=== PATIENT | male | born 1980 | race Caucasian/White ===

== ENCOUNTER 2018-07-28 23:13 | Inpatient (IN) | payer MEDICAID ==
[2018-07-28 23:14] VITALS: BMI 32.5
[2018-07-28] MEDS ORDERED: guaiFENesin DM 100 mg-10 mg/5 ml UD PO STA (23:28)
--- NOTE | 2018-07-28 23:31 | C.PDOC ---
History Of Present Illness Patient transferred to our ED from [facility] for psychiatric admission (for depression), was medically cleared by sending hospital and accepted for admission by Dr. Machado. Patient is c/o sore throat and nonproductive cough, as well as diffuse itching and nausea. He denies any other physical complaints at this time. Time Seen by Provider: 07/28/18 23:16 Chief Complaint (Nursing): Psychiatric Evaluation History Per: Patient History/Exam Limitations: no limitations Modifying Factor(s): Narcotics (heroin abuse ) Severity: Moderate Past Medical History Reviewed: Historical Data, Nursing Documentation, Vital Signs Vital Signs: Last Vital Signs Temp 98.6 F 07/28/18 23:24 Pulse 94 H 07/28/18 23:24 Resp BP 114/78 07/28/18 23:24 Pulse Ox 97 07/28/18 23:24 - Medical History PMH: Anxiety, Asthma, Back Problems (chronic back pain), Bipolar Disorder, Depression, Schizophrenia Surgical History: Appendectomy - [facility] DETOXIFICATION SERVICES FOR SUBSTANCE ABUSE TREATMENT (10/20/15) INJECT/INFUSE NEC (09/24/14) Family History: States: No Known Family Hx - Social History Hx Tobacco Use: No Hx Alcohol Use: Yes Hx Substance Use: Yes - Immunization History Hx Tetanus Toxoid Vaccination: No Hx Influenza Vaccination: No Hx Pneumococcal Vaccination: No Review Of Systems Constitutional: Negative for: Fever, Chills Cardiovascular: Negative for: Chest Pain, Palpitations Respiratory: Positive for: Cough. Negative for: Shortness of Breath, SOB with Excertion, Wheezing Gastrointestinal: Positive for: Nausea. Negative for: Vomiting, Abdominal Pain, Diarrhea Skin: Negative for: Rash Physical Exam - Physical Exam Appears: Well, Non-toxic, No Acute Distress Skin: Other (scattered scratches on neck) Head: Atraumatic, Normacephalic Eye(s): bilateral: Normal Inspection, PERRL, EOMI Oral Mucosa: Moist Cardiovascular: Rhythm Regular Respiratory: Normal Breath Sounds, No Rales, No Rhonchi, No Wheezing Gastrointestinal/Abdominal: Normal Exam, Bowel Sounds, Soft, No Tenderness Neurological/Psych: Oriented x3 ED Course And Treatment O2 Sat by Pulse Oximetry: 97 (RA) Pulse Ox Interpretation: Normal Progress Note: Patient given PO Robitussin, Zofran and Benadryl. Admitted to psychiatric floor for depression. Disposition - Disposition Disposition: HOSPITALIZED Disposition Time: 23:32 Condition: STABLE - Clinical Impression Clinical Impression: Major depression Decision To Admit - Pt Status Changed To: Hospital Disposition Of: Inpatient - Admit Certification Admit to Inpatient:: After my assessment, the patient will require hospitalization for at least two midnights. This is because of the severity of symptoms shown, intensity of services needed, and/or the medical risk in this patient being treated as an outpatient. - InPatient: Physician Admission Certification: I certify that this patient requires 2 or more midnights of care for the following reason:: see notes - . Bed Request Type: Psychiatry Admitting Physician: Ethel Machado Patient Diagnosis: Depression
[2018-07-28] MEDS ORDERED: guaiFENesin 100 mg/5 ml Syrup UD ONE (23:47)
[2018-07-29] MEDS: Albuterol HFA 90 mcg/actuation (8 g) INH PRN ×2 (01:29→12:36)
--- NOTE | 2018-07-29 02:02 | PCM.BM ---
<Cristobal Lucas - Last Filed: 07/29/18 02:01> Treatment Plan Problems - Problems identified on initial assessmt Depression Date Initiated: 07/29/18 Time Initiated: 00:15 Assessment reference: NA Status: Active Opiates Abuse Date Initiated: 07/29/18 Time Initiated: 00:15 Assessment reference: NA Status: Active Treatment assets and liabiliti Patient Assests: physically healthy, good support system Patient Liabilities: substance abuse (Opiates, Cocaine), medical problems (Coughing ) - Milieu Protocol Maintain good personal hygiene: daily Encourage regular showers, daily Remind patient to perform daily oral care, every shift Assist patient to perform ADL's Conduct patient checks and document Observation sheet: Q15 minutes Maintain personal safety: every shift Educate patient to report safety concerns to staff, every shift Monitor environment for contraband/sharps Medication safety: Monitor for expected outcome, potential side effects: every shift, Assess barriers to learning: every shift, Assess readiness for medication education: every shift <Mario Brown - Last Filed: 08/01/18 11:23> - Diagnosis (1) Bipolar 1 disorder Status: Acute Interventions: 08/01/18 11:23 * Assess/adjust medications daily and /or as needed * See patient on an individual basis 7x/week to assess level of manic behaviors and stability * Discuss risks, benefits, side effects and alternatives of medications * (2) Substance abuse Status: Acute Interventions: 08/01/18 11:24 * Assess 7x/week regarding severity of withdrawal * Educate regarding risks, benefits, side effects and alternatives of medications * Use Motivational Interviewing for abstinence * Use CBT for relapse prevention * Medication management for withdrawal symptoms * Encourage medication assisted treatment * <Syeda Sanon - Last Filed: 08/01/18 17:24> Family Contact Family involvement: Patient does not wish Family/SO involvement Family contact: Patient declines to allow family contact at present - Goals for Treatment Patient goals for treatment: "[facility]." Discharge/Continuing Care - Education Needs Education Needs: Patient Medication, Patient Diagnosis/Disease Process, Patient Coping Skills, Patient Placement options, Patient Community resources - Discharge Discharge Criteria: Free of Suicidal thoughts, Free of paranoid thoughts, Normal sleep pattern, Ability to care for self, No longer exhibiting s/s of withdrawal, Reduction of target symptoms Discharge to:: Other - Treatment Team Participation Discussed with Family/SO: No Was Patient/Family/SO present at Treatment Team Meeting: Yes
[2018-07-29] MEDS: guaiFENesin 100 mg/5 ml Syrup UD PO PRN (12:36)
[2018-07-29] MEDS: Amoxicillin-Clav 500-125 mg Tab PO SCH ×2 (14:05→21:13)
[2018-07-30] MEDS: Amoxicillin-Clav 500-125 mg Tab PO SCH ×3 (06:57→21:19)
[2018-07-30] MEDS: Albuterol HFA 90 mcg/actuation (8 g) INH PRN (06:58)
--- NOTE | 2018-07-30 07:19 | PCM.PSYCH ---
Initial Psychiatric Evaluation - Initial Psychiatric Evaluation Legal Status: Capacity Chief Complaint (in patient's own words): PT IS A 38 YEAR 0LD SINGLE. DOMICILED UNEMPLOYED MALE WHO WAS TRANSFERRED FROM ANOTHER HOSP[facility] BECAUSE OF NO BEDS. PT RELAPSED ON HERION COCAINE AND ALCOHOL PT WAS SUICIDAL WITH NO SPECIFIC PALN. HE CANNOT SLEEP AND APPETITE IS POOR. HE FEELS HOPELESS, HELPLESS AND WORTHLESS. PT HAD ONE PREVIOUS HOSPITALIZATION IN 2013 FOR DRUGS AND MOOD SWINGS. PT WAS DX BIPOLAR. PT'S MOTHER. MATERNAL AUNT AND MATERNAL GRANDFATHER SUFFER FROM BIPOLAR DISORDER PT DRINKS 2-4 PTS OF ALCOHOL A DAY. HE STARTED DRINKING WHEN A TEENAGER AND ALCOHOL BECAME A PROBLEM IN HIS 20'S. PT STARTED USING PAIN KILLERS THAT WERE PRESCRIBED FOR FROM TIME TO TIME. HE STARTED USING HEROIN 4 YEARS AGO. HE USES 10 TON 20 BAGS A DAY. PT ALSO USES COCAINE AND SPENDS SEVERAL HUNDRED DOLLARS A WEEK ON IT. PT STATES THAT HIS FAMILY HAS AN AN EXTENSIVE HISTORY OF SUBSTANCE ABUSE. PT HAS BEEN ARRESTED FOR DWI. PT HAS NEVER BEEN IN THE Patient's Reaction to Hospitalization: [facility] PT'S REACTION TO HOSPITALIZATION History of Present Illness and Precipitating Events: PLEASE SEE PT'S REACTION TO HOSPITALIZATION Current Medications: Active Medications Generic Name Dose Route Start Last Admin Trade Name Freq PRN Reason Stop Dose Admin Albuterol 1 puff 07/29/18 00:55 07/30/18 06:58 Ventolin Hfa 90 Mcg/Actuation (8 G) INH 1 puff RQ6 PRN Administration Cough and congestion Amoxicillin/Clavulanate Potassium 1 tab 07/29/18 14:00 07/30/18 06:57 Augmentin 500 Mg-125 Mg Tab PO 1 tab Q8H MARIALUISA Administration Protocol Chlordiazepoxide 25 mg 07/29/18 13:37 07/30/18 06:56 Librium PO 25 mg Q4 PRN Administration symptoms of withdrawal Gabapentin 100 mg 07/29/18 18:00 07/29/18 17:30 Neurontin PO 100 mg TID MARIALUISA Administration Guaifenesin 100 mg 07/29/18 01:55 07/29/18 12:36 Robitussin PO 100 mg Q6H PRN Administration Cough Ibuprofen 600 mg 07/29/18 17:00 07/29/18 17:29 Motrin Tab PO 600 mg TID PRN Administration back pain Influenza Virus Vaccine 60 mcg 07/31/18 10:00 Fluzone Quad [id number] IM 07/31/18 10:01 .ONCE ONE Mirtazapine 15 mg 07/29/18 22:00 07/29/18 21:11 Remeron PO 15 mg HS MARIALUISA Administration Pneumococcal Polyvalent Vaccine 0.5 ml 08/01/18 10:00 Pneumovax 23 Vaccine IM 08/01/18 10:01 .ONCE ONE Past Psychiatric History - Past Psychiatric History Prior Professional Help: SEE HPI Pertinent Medical Hx (Current Medical&Sleep Prob, Allergies): Allergies Allergy/AdvReac Type Severity Reaction Status Date / Time Sulfa (Sulfonamide Allergy RASH Verified 01/05/17 03:39 Antibiotics) QUEtiapine [Seroquel XR] 300 mg PO [facility] #30 ter 01/13/17 buPROPion SR [Wellbutrin SR 150 MG] 150 mg PO DAILY #14 tab 01/13/17 hydrOXYzine Pamoate [Vistaril] 50 mg PO TID #45 cap 01/13/17 traZODone [Desyrel] 100 mg PO HS #14 tab 01/13/17 Review of Systems - Constitutional Constitutional: Chills, Sweats - EENT Eyes: UNREMARKABLE Ears: UNREMARKABLE Nose/Mouth/Throat: UNREMARKABLE - Cardiovascular Cardiovascular: UNREMARKABLE - Respiratory Respiratory: Cough - Gastrointestinal Gastrointestinal: Abdominal Pain - Genitourinary Genitourinary: UNREMARKABLE - Reproductive: Male Reproductive:Male: UNREMARKABLE - Musculoskeletal Musculoskeletal: Myalgias - Integumentary Integumentary: UNREMARKABLE - Neurological Neurological: UNREMARKABLE - Psychiatric Psychiatric: Anxiety, Depression - Endocrine Endocrine: UNREMARKABLE - Hematologic/Lymphatic Hematologic: UNREMARKABLE Mental Status Examination - Affect Affect: Constricted - Motor Activity Motor Activity: Calm - Speech Speech: Organized - Mood Mood: Depressed, Anxious - Formal Thought Process Formal Thought Process: No Impairment - Obsessions/Compulsions Obsessions: None Compulsions: None - Cognitive Functions Orientation: Person, Place, Situation, Time Sensorium: Alert Attention/Concentration: Attentive Abstract Thinking: As evidence by literal perception of proverbs Estimate of Intelligence: Average Judgement: Intact, as evidence by: Good judgement Memory: Recent intact, as evidence by: Ability to recall events of the day, Remote intact, as evidenced by: Abilit to recall sig. life events - Risk Risk: Suicidal, Seizure, Withdrawal - Strength & Assets Inventory Strength & Assets Inventory: Intelligence, Education, Employment history - Limitations Limitations: Other DSM 5 DX - DSM 5 DSM 5 Diagnosis: BIPOLAR DISORDER: NEURONTIN REMERON AK CBT SUPPORTIVE PSYCHOTHERAPY OPIOID WITHDRAWAL: METHADONE TAPER AK CBT SUPPORTIVE PSYCHOTHERAPY OPIOID USE DISORDER AK CBT PSYCHOTHERAPY GROUP MILIEU RECREATIONAL THERAPY PSYCHOEDUCATION ALCOHOL WITHDRAWAL: LIBRIUM\ALCOHOL USE DISORDER ABOVE - Recommended/Plan of Treatment Treatment Recommendations and Plan of Treatment: SEE ABOVE Projected ELOS: 10 DAYS Prognosis: FAIR WITH CONTINUED TREATMENT Discharge Plan and Discharge Criteria: NO LONGER SUICIDAL - Smoking Cessation Smoking Cessation Initiated: No
[2018-07-30] MEDS: guaiFENesin 100 mg/5 ml Syrup UD PO PRN (17:11)
--- NOTE | 2018-07-30 22:07 | PCM.PYCHPN ---
Psychiatric Progress Note - Psychiatric Progress Note Patient seen today, length of contact: 15 min Patient Chief Complaint: I m feeling depressed.' Problems Identified/Issues Discussed: Patient seen and evaluated, chart reviewed and discussed with the nurse. Patient reports depressed mood and at times feelings of hopelessness and helplessness. As per the staff patient remained isolated and withdrawn. Patient still reports irritability and agitation. He reports poor sleep and poor appetite. Patient also reports withdrawal symptoms including cramps, nausea, anxiety, and headaches. He is taking the medications and denies any side effects. Symptoms are improving and he needs more time for stabilization Supportive therapy and psychoeducation were given. Medication Change: Yes Medical Record Reviewed: Yes Mental Status Examination - Cognitive Function Orientation: Person, Place, Situation, Time Memory: Intact Attention: WNL Concentration: Poor Association: WNL Fund of Knowledge: Poor - Mood Mood: Depressed, Anxious - Affect Affect: Constricted - Speech Speech: Soft - Formal Thought Process Formal Thought Process: Paranoia, Loosening of associations - Suicidal Ideation Suicidal Ideation: No - Homicidal Ideation Homicidal Ideation: No Goal/Treatment Plan - Goal/Treatment Plan Need for Continued Stay: Severe depression anxiety, Severe functional impairment Progress Toward Problem(s) and Goals/Treatment Plan: Major Depressive disorder recurrent severe without psychotic features Alcohol use disorder severe Opioid use disorder severe Opioid withdrawal Cocaine use disorder severe -CBT -Psychotherapy -Supportive therapy, group therapy, individual therapy -Atarax 25 mg PO Q6 prn -Remeron to 30 mg PO QHS -Trazodone 50 mg PO QHS prn -Neurontin 300 mg PO TID -Methadone taper -Librium prn - Smoking Cessation Smoking Cessation Initiated: No
[2018-07-31] MEDS: Amoxicillin-Clav 500-125 mg Tab PO SCH ×3 (06:20→21:47)
[2018-07-31] MEDS ORDERED: Influenza Vaccine 60 MCG/0.5 ML SYR (3 yr & up) IM ONE (10:00)
[2018-07-31] MEDS: Divalproex 250 mg DR Tab PO SCH ×2 (12:15→17:15)
[2018-07-31] MEDS: guaiFENesin 100 mg/5 ml Syrup UD PO PRN (14:15)
--- NOTE | 2018-07-31 23:11 | PCM.PYCHPN ---
Psychiatric Progress Note - Psychiatric Progress Note Patient seen today, length of contact: 15 min Patient Chief Complaint: I m feeling little better.' Problems Identified/Issues Discussed: Patient seen and evaluated, chart reviewed and discussed with the nurse. Patient reports depressed mood and at times feelings of hopelessness and helplessness. As per the staff patient remained isolated and withdrawn. However, he reports improvement in the withdrawal symptoms. Patient still reports irritability and agitation. He reports poor sleep and poor appetite. He is taking the medications and denies any side effects. Symptoms are improving and he needs more time for stabilization Supportive therapy and psychoeducation were given. Medication Change: Yes Medical Record Reviewed: Yes Mental Status Examination - Cognitive Function Orientation: Person, Place, Situation, Time Memory: Intact Attention: WNL Concentration: Poor Association: WNL Fund of Knowledge: Poor - Mood Mood: Depressed, Anxious - Affect Affect: Constricted - Speech Speech: Soft - Formal Thought Process Formal Thought Process: Paranoia - Suicidal Ideation Suicidal Ideation: No - Homicidal Ideation Homicidal Ideation: No Goal/Treatment Plan - Goal/Treatment Plan Need for Continued Stay: Severe depression anxiety, Severe functional impairment Progress Toward Problem(s) and Goals/Treatment Plan: Major Depressive disorder recurrent severe without psychotic features Alcohol use disorder severe Opioid use disorder severe Opioid withdrawal Cocaine use disorder severe -CBT -Psychotherapy -Supportive therapy, group therapy, individual therapy -Atarax 25 mg PO Q6 prn -Depakote 250 mg BID -Increase Remeron to 30 mg PO QHS -Trazodone 50 mg PO QHS prn -Neurontin 300 mg PO TID -Methadone taper -Librium prn - Smoking Cessation Smoking Cessation Initiated: No
[2018-08-01] MEDS: Amoxicillin-Clav 500-125 mg Tab PO SCH ×3 (06:24→21:05)
[2018-08-01 06:27] VITALS: RESP 18
[2018-08-01] MEDS ORDERED: Pneumococcal 23-Valent Vaccine IM ONE (10:00)
[2018-08-01] MEDS: Divalproex 250 mg DR Tab PO SCH ×2 (11:14→18:09)
--- NOTE | 2018-08-01 14:28 | PCM.PYCHPN ---
Psychiatric Progress Note - Psychiatric Progress Note Patient seen today, length of contact: 15 min Patient Chief Complaint: I m feeling little better.' Problems Identified/Issues Discussed: Patient seen and evaluated, chart reviewed and discussed with the nurse. Patient reports some improvement in the depressed mood and hopelessness and helplessness. He also reports improvement in the withdrawal symptoms. Patient still reports irritability and agitation. He reports some improvement in the sleep and appetite. He is taking the medications and denies any side effects. Symptoms are improving and he needs more time for stabilization Supportive therapy and psychoeducation were given. Medication Change: Yes Medical Record Reviewed: Yes Mental Status Examination - Cognitive Function Orientation: Person, Place, Situation, Time Memory: Intact Attention: WNL Concentration: Poor Association: WNL Fund of Knowledge: Poor - Mood Mood: Depressed, Anxious - Affect Affect: Constricted - Speech Speech: Soft - Formal Thought Process Formal Thought Process: No Impairment - Suicidal Ideation Suicidal Ideation: No - Homicidal Ideation Homicidal Ideation: No Goal/Treatment Plan - Goal/Treatment Plan Need for Continued Stay: Severe depression anxiety, Severe functional impairment Progress Toward Problem(s) and Goals/Treatment Plan: Major Depressive disorder recurrent severe without psychotic features Alcohol use disorder severe Opioid use disorder severe Opioid withdrawal Cocaine use disorder severe -CBT -Psychotherapy -Supportive therapy, group therapy, individual therapy -Atarax 25 mg PO Q6 prn -Depakote 500 mg BID -Seroquel 100 mg PO QHS -Trazodone 50 mg PO QHS prn -Neurontin 300 mg PO TID -Methadone taper -Librium prn
--- NOTE | 2018-08-01 16:25 | RAD ---
Date of service: 08/01/2018 HISTORY: Going to rehab COMPARISON: 08/29/2013 TECHNIQUE: Chest PA and lateral FINDINGS: LUNGS: No active pulmonary disease. PLEURA: No significant pleural effusion identified. No pneumothorax apparent. CARDIOVASCULAR: Normal. OSSEOUS STRUCTURES: No significant abnormalities. VISUALIZED UPPER ABDOMEN: Normal. OTHER FINDINGS: None. IMPRESSION: No active disease.
[2018-08-02] MEDS: Amoxicillin-Clav 500-125 mg Tab PO SCH ×3 (06:38→21:24)
[2018-08-02] MEDS: Divalproex 250 mg DR Tab PO SCH ×2 (10:38→18:00)
--- NOTE | 2018-08-02 14:10 | PCM.PYCHPN ---
Psychiatric Progress Note - Psychiatric Progress Note Patient seen today, length of contact: 15 min Patient Chief Complaint: "I need rehab I think" Problems Identified/Issues Discussed: The pt is seen, chart reviewed, case discussed with staff. The pt is compliant with medications and reports no side-effects. Symptoms are improving but needs more time to stabilize. After care discussed, support and psychoeducation given. Medication Change: Yes Medical Record Reviewed: Yes Mental Status Examination - Cognitive Function Orientation: Person, Place, Situation, Time Memory: Intact Attention: WNL Concentration: Poor Association: WNL Fund of Knowledge: WNL - Mood Mood: Depressed, Anxious - Affect Affect: Constricted - Speech Speech: Appropriate - Formal Thought Process Formal Thought Process: Paranoia - Suicidal Ideation Suicidal Ideation: No - Homicidal Ideation Homicidal Ideation: No Goal/Treatment Plan - Goal/Treatment Plan Need for Continued Stay: Severe depression anxiety, Discharge may exacerbated symptoms, Severe functional impairment Progress Toward Problem(s) and Goals/Treatment Plan: Continue medications Support and psychoeducation daily Attend groups and activities daily After care planning by RASHAD - consider rehab
[2018-08-03] MEDS: Amoxicillin-Clav 500-125 mg Tab PO SCH ×2 (05:54→13:38)
[2018-08-03] MEDS: Divalproex 250 mg DR Tab PO SCH ×2 (10:05→17:23)
[2018-08-04] MEDS: Divalproex 250 mg DR Tab PO SCH ×2 (09:32→17:20)
--- NOTE | 2018-08-04 17:05 | PCM.PYCHPN ---
Psychiatric Progress Note - Psychiatric Progress Note Patient seen today, length of contact: 15 min Patient Chief Complaint: I'm feeling much better. I wants to go home today. Problems Identified/Issues Discussed: Patient seen, chart reviewed, case discussed with the staff. Issues related to illness and treatment were discussed with the patient and staff. Tolerating treatment very well. Reported compliant with treatment with no adverse affects. Patient reported feeling better with treatment. Needs more time for stabilization. Patient wants to go home today without completion of his treatment. Education provided. Patient stayed. Patient was calm and cooperative. Awake, alert and oriented 3. Aftercare discussed with the patient. At the time of evaluation, patient had no delusions, no auditory or visual hallucinations, no suicidal ideations or homicidal ideations. Medical Problems: None reported Diagnostic Results: Reviewed DSM 5 Symptoms Update: Some improvement with treatment Medication Change: No Medical Record Reviewed: Yes Mental Status Examination - Cognitive Function Orientation: Person, Place, Situation, Time Memory: Intact Attention: WNL Concentration: WNL Association: [facility] Fund of Knowledge: [facility] Decription of patient's judgement and insights: Fair - Mood Mood: Anxious - Affect Affect: Other (Appropriate) - Speech Speech: Soft - Formal Thought Process Formal Thought Process: No Impairment Psychotic Thoughts and Behaviors: None - Suicidal Ideation Suicidal Ideation: No - Homicidal Ideation Homicidal Ideation: No Goal/Treatment Plan - Goal/Treatment Plan Need for Continued Stay: Remain at risks for inpatient hospitalization, Discharge may exacerbated symptoms, Severe functional impairment Progress Toward Problem(s) and Goals/Treatment Plan: Patient/staff education. Supportive therapy. CBT for relapse prevention. GA for abstinence. Continue treatment as before. Patient wants to go to [facility] for follow-up care after discharge from the hospital. Estimated Date of D/C: 08/06/18 - Smoking Cessation Smoking Cessation Initiated: No
[2018-08-04] MEDS: guaiFENesin 100 mg/5 ml Syrup UD PO PRN (20:50)
[2018-08-05 06:37] VITALS: TEMP 97.5
[2018-08-05] MEDS: Divalproex 250 mg DR Tab PO SCH ×2 (09:36→17:22)
--- NOTE | 2018-08-05 18:13 | PCM.PYCHPN ---
Psychiatric Progress Note - Psychiatric Progress Note Patient seen today, length of contact: 15 min Patient Chief Complaint: I'm feeling much better. Can I get soma for me back ache. Problems Identified/Issues Discussed: Patient seen, chart reviewed, case discussed with the staff. Issues related to illness and treatment were discussed with the patient and staff. Tolerating treatment very well. Reported compliant with treatment with no adverse affects. Patient reported feeling better with treatment. Patient was asking for soma for his back ache. Education provided. Offered naproxen. Patient agreed for naproxen. Will discontinue ibuprofen and give him naproxen. Patient was calm and cooperative. Awake, alert and oriented 3. Aftercare discussed with the patient. At the time of evaluation, patient had no delusions, no auditory or visual hallucinations, no suicidal ideations or homicidal ideations. Medical Problems: None reported Diagnostic Results: Reviewed DSM 5 Symptoms Update: Some improvement with treatment Medication Change: Yes (DC ibuprofen, started naproxen) Medical Record Reviewed: Yes Mental Status Examination - Cognitive Function Orientation: Person, Place, Situation, Time Memory: Intact Attention: WNL Concentration: WNL Association: [facility] Fund of Knowledge: [facility] Decription of patient's judgement and insights: Fair - Mood Mood: Anxious (Less than before) - Affect Affect: Other (Appropriate) - Speech Speech: Soft - Formal Thought Process Formal Thought Process: No Impairment Psychotic Thoughts and Behaviors: None - Suicidal Ideation Suicidal Ideation: No - Homicidal Ideation Homicidal Ideation: No Goal/Treatment Plan - Goal/Treatment Plan Need for Continued Stay: Remain at risks for inpatient hospitalization, Discharge may exacerbated symptoms, Severe functional impairment Progress Toward Problem(s) and Goals/Treatment Plan: Patient/staff education. Supportive therapy. CBT for relapse prevention. MT for abstinence. Continue treatment as before. Patient wants to go to [facility] for follow-up care after discharge from the hospital. Estimated Date of D/C: 08/06/18 - Smoking Cessation Smoking Cessation Initiated: No
[2018-08-05] MEDS ORDERED: Naproxen 550 mg Tab PO PRN (18:14)
[2018-08-06 06:43] VITALS: BP 119/76; PULSE 68
[2018-08-06 07:37] VITALS: O2SAT 97
[2018-08-06] MEDS: Divalproex 250 mg DR Tab PO SCH (09:35)
--- NOTE | 2018-08-06 11:11 | PCM.PYCHDC ---
Mental Status Examination - Mental Status Examination Orientation: Person, Place, Situation, Time Memory: Intact Mood: Neutral Affect: Constricted Speech: Soft Attention: WNL Concentration: WNL Association: WNL Fund of Knowledge: WNL Formal Thought Process: No Impairment Description of patient's judgement and insight: good, fair Psychotic Thoughts and Behaviors: denies any AVH Suicidal Ideation: No Current Homicidal Ideation?: No Discharge Summary - Discharge Note Reason for Hospitalization: Pt is a 38 year 0ld single. Domiciled unemployed male who was transferred from another hospital [facility] because of no beds. Pt relapsed on herion cocaine and alcohol pt was suicidal with no specific paln. He cannot sleep and appetite is poor. He feels hopeless, helpless and worthless. Pt had one previous hospitalization in 2013 for drugs and mood swings. Pt was dx as bipolar. Pt's mother. Maternal aunt and maternal grandfather suffer from bipolar disorder pt drinks 2-4 pts of alcohol a day. He started drinking when a teenager and alcohol became a problem in his 20's. Pt started using pain killers that were prescribed for from time to time. He started using heroin 4 years ago. He uses 10 ton 20 bags a day. Pt also uses cocaine and spends several hundred dollars a week on it. Pt states that his family has an an extensive history of substance abuse. Pt has been arrested for dwi. Pt has never been in the Consultations:: List each consultation separately and include: 1. Reason for request. 2. Findings. 3. Follow-up Summary of Hospital Course include:: 1. Description of specific treatment plan utilized for patients during their course of treatmen. 2. Summarize the time- course for resolution of acute symptoms and/or regressed behaviors. 3. Describe issues identified and worked on during hospitalization. 4. Describe medication utilized. 5. Describe medical problems identified and treated. 6. Reassessment of suicide risk Summary of Hospital Course: During the course of his stay, patient (pt) started progressively improving and no longer remained irritable, depressed, and suicidal. His mood and anxiety were improved and he started attending groups and meetings and started socializing. Patient denied any feelings of hopelessness, helplessness, and worthlessness, denied any problem with the sleep or appetite, denied suicidal ideation or homicidal ideation. Pt denied any auditory or visual hallucinations. He denied any withdrawal symptoms. Pt was treated with medications along with supportive therapy, milieu therapy and group therapy. Some changes were made in his current medications and patient was discharged on following medications. He tolerated these medications very well and denied any side effects. - Diagnosis (1) Bipolar 1 disorder Status: Acute (2) Substance abuse Status: Acute Priority: High Comment: UDOA positive for opiates and amphe tamines - Final Diagnosis (DSM 5) Condition upon Discharge: STABLE DSM 5: Major Depressive disorder recurrent severe without psychotic features Alcohol use disorder severe Opioid use disorder severe Opioid withdrawal Cocaine use disorder severe Disposition: HOME/ ROUTINE Follow-up Treatment Plan: Followup: He was discharged to the [place], [place]. Education: Pt was educated and counseled about the risks and benefits of taking and not taking medications. Pt was educated and counseled about the risks of drinking and abusing drugs. Pt was educated and counseled to go to the ER or call 911 if pt develop suicidal ideation or homicidal ideation, worsening of symptoms or severe side effects of the meds. Prescriptions/Medication Reconciliation: Divalproex [Depakote DR] 500 mg PO BID #60 tcp Gabapentin [Neurontin] 300 mg PO BID #60 cap QUEtiapine [Seroquel] 100 mg PO HS #30 tab - Smoking Cessation Smoking Cessation Medication prescribed: No - Antipsychotic Medications Pt discharged on 2 or more routine antipsychotic medications: No
== END 2018-08-06 11:50 | disposition home or self-care (01) | DRG 430 ==
LOC: C.ER 23:13 → C.5E 23:32
PROVIDERS: ADMIT Psychiatry & Neurology Psychiatry; ATTEND Psychiatry & Neurology Psychiatry
PROC: HZ2ZZZZ Detoxification Services for Substance Abuse Treatment (ICD-10-PCS; principal; 2018-07-28)
PROC: GZHZZZZ Group Psychotherapy (ICD-10-PCS; 2018-07-28)
PROC: HZ52ZZZ Individual Psychotherapy for Substance Abuse Treatment, Cognitive-Behavioral (ICD-10-PCS; 2018-07-28)
PROC: HZ59ZZZ Individual Psychotherapy for Substance Abuse Treatment, Supportive (ICD-10-PCS; 2018-07-28)
PROC: HZ56ZZZ Individual Psychotherapy for Substance Abuse Treatment, Psychoeducation (ICD-10-PCS; 2018-07-28)
PROC: HZ42ZZZ Group Counseling for Substance Abuse Treatment, Cognitive-Behavioral (ICD-10-PCS; 2018-07-28)
PROC: HZ46ZZZ Group Counseling for Substance Abuse Treatment, Psychoeducation (ICD-10-PCS; 2018-07-28)
PROC: GZ58ZZZ Individual Psychotherapy, Cognitive-Behavioral (ICD-10-PCS; 2018-07-28)
PROC: GZ56ZZZ Individual Psychotherapy, Supportive (ICD-10-PCS; 2018-07-28)
DX: F33.2 Major depressive disorder, recurrent severe without psychotic features (principal); F14.20 Cocaine dependence, uncomplicated; F10.230 Alcohol dependence with withdrawal, uncomplicated; F11.23 Opioid dependence with withdrawal; R45.851 Suicidal ideations; F20.9 Schizophrenia, unspecified; F31.9 Bipolar disorder, unspecified; F41.9 Anxiety disorder, unspecified; J45.909 Unspecified asthma, uncomplicated